=== PATIENT | male | born 1965 | race Caucasian/White ===

== ENCOUNTER 2016-11-18 16:48 | Emergency (ER) | payer OTHER ==
[~2016-11-18] VITALS: Ht 193 cm; Wt 104.5 kg
[~2016-11-18 16:48] MED LIST: NOHOMEMEDS
[2016-11-18 17:41] LABS: HEMATOCRIT 44.2 % (38.0-50.0); MCH 32.4 PG (29.0-34.0); MCHC 34.6 G/DL (30.0-36.0); MCV 93.6 FL (86-99); MEAN PLAT.VOLUME 9.9 uM^3 (9.0-12.4); PLATELET COUNT 282 K/uL (156-360); RBC DIS.WIDTH-CV 11.9 % (11.8-14.6); RBC DIS.WIDTH-SD 41.2 % (39-53); RED BLOOD COUNT 4.72 M/uL (4.00-5.50); WHITE BLOOD COUNT 13.3 K/uL (4.1-10.2)
[2016-11-18 17:48] LABS: CHLORIDE 101 mEq/L (99-109); POTASSIUM 4.4 mEq/L (3.7-5.4); SODIUM 136 mEq/L (136-147)
[2016-11-18 17:50] LABS: GLUCOSE 142 mg/dL (70-99)
[2016-11-18 17:51] LABS: ANION GAP 12 MEQ/L (2-14)
[2016-11-18 17:53] LABS: GFR ESTIMATE (CALCULATED) > 59 mL/min/
[2016-11-18 17:54] LABS: UREA NITROGEN (BUN) 13 mg/dL (9-23)
[2016-11-18 18:38] LABS: D-DIMER ELISA > 4.00 mg/L FEU (< 0.57)
[2016-11-18 18:40] LABS: TROP-I INTERPRETATION NEGATIVE; TROPONIN-I 0.11 ng/mL (0.0-0.30)
[2016-11-18 21:38] LABS: INTER. NORMALIZED RATIO 1.1; PROTHROMBIN TIME 10.7 (9.2-11.2); PTT 27.6 (25-32)
[2016-11-18 23:05] VITALS: BP 127/99
== END 2016-11-18 23:16 | disposition short-term general hospital (02) ==
LOC: EME 16:48
DX: I26.99 Other pulmonary embolism without acute cor pulmonale (principal); R09.02 Hypoxemia; E78.5 Hyperlipidemia, unspecified; I10 Essential (primary) hypertension; R79.89 Other specified abnormal findings of blood chemistry; F17.200 Nicotine dependence, unspecified, uncomplicated; Z79.82 Long term (current) use of aspirin
CPT/HCPCS: 71020; 71275; 80048; 83880; 84484; 85027; 85379; 85610; 85730; 93005; 94640; 99281; 99285; J7030